=== PATIENT | male | born 1960 | race Hispanic/Latino ===

== ENCOUNTER 2017-03-27 06:39 | Day surgery (SDC) | payer MEDICAID ==
[2017-03-23 12:46] VITALS: BMI 23.0
[2017-03-27] MEDS ORDERED: Lidocaine 2% Inj (20ml) ONE (07:04)
[2017-03-27] MEDS ORDERED: HEPARIN SODIUM/NS 2,000 ML IV ONE (07:05)
[2017-03-27] MEDS ORDERED: Iohexol 350 MG/100 ML VIAL ONE (07:05)
[2017-03-27] MEDS ORDERED: Iohexol 350mgl/ml 50 ML ONE (07:05)
[2017-03-27] MEDS ORDERED: Nitroglycerin 50mg in D5W 50 MG/250 ML BOTTLE IV ONE (07:05)
[2017-03-27] MEDS ORDERED: Phenylephrine 10 mg/ml Inj ONE (07:06)
[2017-03-27 07:28] VITALS: O2SAT 99
[2017-03-27 07:39] LABS: BASO # 0.02 [, K/mm3] (0.0-2.0); BASO % 0.4 % (0.0-3.0); EOS # 0.2 (0.0-0.7); EOS % 4.3 % (1.5-5.0); GRAN # 2.8 (1.4-6.5); GRAN % 57.8 % (50.0-68.0); HEMOGLOBIN 11.4 g/dL (14.0-18.0); LYMPH # 1.4 (1.2-3.4); MEAN CORPUSCULAR HEMOGLOBIN 31.3 pg (25.0-35.0); MEAN CORPUSCULAR HGB CONC 33.3 g/dl (31.0-37.0); MEAN PLATELET VOLUME 9.1 fl (7.0-11.0); MONO # 0.5 (0.1-0.6); MONO % 9.5 % (1.0-6.0); RBC 3.64 [, 10^6/uL] (3.5-6.1); RED CELL DISTRIBUTION WIDTH 12.7 % (11.5-14.5); WHITE BLOOD COUNT 4.9 [, 10^3/ul] (4.5-11.0)
[2017-03-27 07:51] LABS: INR 0.91 (0.93-1.08); PARTIAL THROMBOPLASTIN TIME 31.2 Seconds (25.1-36.5); PROTHROMBIN TIME 10.5 SECONDS (9.4-12.5)
[2017-03-27 07:58] LABS: BLOOD UREA NITROGEN 14 mg/dL (7-21); GFR AFRICAN-AMERICAN > 60; GFR NON-AFRICAN AMERICAN > 60; HDL CHOLESTEROL 79 mg/dL (29-60)
[2017-03-27 08:09] LABS: LDL CHOLESTEROL 81 mg/dL (0-129)
--- NOTE | 2017-03-27 08:16 | HP ---
REASON FOR ADMISSION: Left heart cath, possible angioplasty. BRIEF CLINICAL HISTORY: This is a 57-year-old male with past medical history significant for arthritis; by profession, the patient is a christianson; complaining of dyspnea on exertion and chest pain on exertion, and get better by taking rest. The patient has a stress test, first insurance approved regular stress test which is abnormal, so cardiac catheterization was referred. The patient's insurance did not approve the cardiac catheterization, so the patient underwent a stress thallium dated 02/2017 that shows abnormal stress myocardial perfusion study reversible medium-sized anteroseptal-apical defect suggestive of ischemia, so the patient is scheduled for elective cardiac catheterization and possible angioplasty. The patient is complaining of dyspnea and chest pain on exertion and completely relieved by taking rest. PAST MEDICAL HISTORY: Significant for arthritis. SOCIAL HISTORY: Denies smoking. Denies any history of alcohol abuse. CURRENT MEDICATIONS: The patient is taking naproxen 500 mg daily, lisinopril 2.5 mg daily, aspirin 81 mg daily, metoprolol succinate 25 mg daily, multivitamin 1 tablet daily. ALLERGIES: NO KNOWN DRUG ALLERGIES. REVIEW OF SYSTEMS: As per HPI. PREVIOUS CARDIAC WORKUP: As follows; the patient had a stress test done at [facility] x2. First stress test was positive regular stress test, so cardiac catheterization was recommended but insurance disapproved it. Repeat stress test done dated 01/30/2017, the patient walked on the treadmill for 7 minutes and 28 seconds achieving estimated workload of 10 METs and heart rate into the 138% with 80% of predicted heart rate . A stress component shows abnormal stress myocardial perfusion study, reversible medium-sized anteroseptal-apical defect suggestive of ischemia, ejection fraction of 66%. PHYSICAL EXAMINATION: GENERAL: Height of the patient is 5 feet 11 inches, weight of the patient is 165 pounds, body mass index 23 kg/m2. VITAL SIGNS: As follows: Blood pressure 122/88, heart rate 68. HEENT: PERRLA. Extraocular muscles intact. NECK: Supple. No carotid bruits or thyromegaly. CHEST: Clear to auscultation. HEART: S1 and S2 regular. ABDOMEN: Soft. EXTREMITIES: Clubbing and cyanosis negative. LABORATORY DATA: Blood workup pending. IMPRESSION: Unstable angina, arthritis, hypertension borderline, abnormal stress test, anteroseptal-apical ischemia, ejection fraction of 66%. RECOMMENDATION: Risks, benefits and alternatives were discussed with the patient. The patient agreed, and we will proceed for the cardiac catheterization. We will load with aspirin and Plavix. Wait for the blood workup. If the blood workup is available, we will proceed with cardiac catheterization. Further recommendation after the cardiac catheterization. We will follow with you. Thank you Dr. Cindi Prasad for providing us the opportunity in taking care of the patient, Dickson Flores. Chikis Hammer MD
[2017-03-27] MEDS ORDERED: Midazolam 2 MG/2 ML VIAL ONE (08:56)
[2017-03-27] MEDS ORDERED: Eptifibatide 20 mg/10mL Inj IVP ONE (09:30)
[2017-03-27] MEDS ORDERED: Sodium Chloride 0.9% 1,000 ML IV SCH (10:30)
[2017-03-27 13:57] LABS: BASO # 0.01 [, K/mm3] (0.0-2.0); BASO % 0.2 % (0.0-3.0); EOS # 0.1 (0.0-0.7); EOS % 2.1 % (1.5-5.0); GRAN # 2.84 (1.4-6.5); GRAN % 53.7 % (50.0-68.0); HEMOGLOBIN 12.2 g/dL (14.0-18.0); LYMPH # 1.8 (1.2-3.4); LYMPH % 34.4 % (22.0-35.0); MEAN CELL VOLUME 94.8 fl (80.0-105.0); MEAN CORPUSCULAR HEMOGLOBIN 31.9 pg (25.0-35.0); MEAN CORPUSCULAR HGB CONC 33.6 g/dl (31.0-37.0); MEAN PLATELET VOLUME 9.2 fl (7.0-11.0); MONO # 0.5 (0.1-0.6); MONO % 9.6 % (1.0-6.0); RBC 3.83 [, 10^6/uL] (3.5-6.1); RED CELL DISTRIBUTION WIDTH 12.9 % (11.5-14.5); WHITE BLOOD COUNT 5.3 [, 10^3/ul] (4.5-11.0)
[2017-03-27 14:05] LABS: BLOOD UREA NITROGEN 12 mg/dL (7-21); CALCIUM 9.9 mg/dL (8.4-10.5); GFR AFRICAN-AMERICAN > 60; GFR NON-AFRICAN AMERICAN > 60
[2017-03-27 14:22] VITALS: TEMP 98.1
[2017-03-27] MEDS ORDERED: Bacitracin 500 Units/gm Oint Foilpak UD ONE (16:17)
--- NOTE | 2017-03-27 16:24 | CARD ---
APPROVED REPORT EKG Measurement Heart [id number] <Conclusion> Marked sinus bradycardia Abnormal ECG
--- NOTE | 2017-03-27 16:44 | CARD ---
APPROVED REPORT EKG Measurement Heart [id number] <Conclusion> Sinus bradycardia Incomplete right bundle branch block Moderate voltage criteria for LVH, may be normal variant Borderline ECG
[2017-03-27 17:42] VITALS: BP 134/78; PULSE 54; RESP 20
--- NOTE | 2017-03-27 18:36 | CARD ---
APPROVED REPORT Procedure(s) performed: Left Heart Catheterization PTCA with Stenting of proximal LAd with LANA HISTORY The patient is a 57 year-old male with a history of : most recent EF: 66%. (EF Method: RADIONUCLIDE), hypertension . INDICATION The indication(s) include : positive stress test, unstable angina , chest pain, dyspnea. CASE TECHNIQUE The patient was brought electively to the Cardiac Catheterization Laboratory in a fasting state and was prepped and draped in a sterile manner. The left wrist was infiltrated with 2% Lidocaine subcutaneous anesthesia. A 6FR [employer] sheath was inserted into the left radial artery without difficulty. Coronary angiography was performed using coronary diagnostic catheters. The left coronary system was accessed and visualized with a Diagnostic ,5 Fr JL 4 catheter. The right coronary system was accessed and visualized with a Diagnostic , catheter. The left ventricle was accessed and visualized with a 5 Fr Pigtail 145 (Angled) catheter. Left ventricular/Aortic Valve gradient assessed on pullback. Left ventriculogram was performed in JONES projection. Closure device was deployed with a Fr TR Band (Regular) without any complications. The patient tolerated the procedure well and there were no complications associated with the procedure. Vessel Analysis The patient's coronary anatomy is right dominant. The left main coronary artery is a large size vessel Very short or separate ostium for LAD/CX. The left main trifurcates to the left anterior descending, circumflex, and ramus. The left anterior descending artery is a medium size vessel with diffuse calcification noted throughout this vessel and with significant stenosis. There is a 90% stenosis in the proximal segment. The first diagonal branch is a medium size vessel with diffuse calcification noted throughout this vessel and without significant stenosis. The second diagonal branch is a medium size vessel with diffuse calcification noted throughout this vessel and without significant stenosis. The circumflex artery is a medium size vessel with diffuse calcification noted throughout this vessel and without significant stenosis. The first obtuse marginal branch is a medium size vessel with diffuse calcification noted throughout this vessel and without significant stenosis. The ramus intermedius artery is a medium size vessel with diffuse calcification noted throughout this vessel and without significant stenosis. The right coronary artery is a large size vessel with diffuse calcification noted throughout this vessel and without significant stenosis. The right posterior descending artery is a large size vessel with diffuse calcification noted throughout this vessel and without significant stenosis. The right posterolateral branch is a large size vessel with diffuse calcification noted throughout this vessel and without significant stenosis. Left Ventricle The left ventricle is normal in size with normal contractility. There was no cardiomyopathy. The left ventricular ejection fraction is estimated to be 55-60%. The left ventricular end diastolic pressure is 14 mmHg. There was no gradient across the aortic valve upon pullback. PCI Technique Lesion Anticoagulation was achieved with Heparin. Percutaneous coronary intervention was performed on the proximal left anterior descending artery segment. The lesion stenosis prior to intervention was 90% with FERNY 1 flow. A 6 Fr XB 3.5 SH Guide Catheter was used to engage the ostium. A Amulyte 182 Interventional Guidewire was used to cross the lesion. BALLOON DILATION A Balloon catheter 2.0 x 12 mm Mini Trek RX was inserted and inflated up to 8.00atm for 10seconds. STENT DEPLOYMENT A drug-eluting stent 4.0 x 12 mm Resolute LANA was inserted and inflated up to 12atm for 15seconds. POST STENT DEPLOYMENT BALLOON DILATION A Balloon catheter 4.5 x 8 mm Trek RX NC was inserted and inflated up to 18.00atm for 19seconds. Final angiography reveals 0 % stenosis with FERNY 3 flow. 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 EF-55-60%. successful PTCA with LANA Recommendations Cardiac Rehabilitation ReferralDaily ASA with Plavix for at least one year Aggressive Medical TherapyCardiac Risk Reduction Program CC; Dr.Rita Osmar MD
[2017-03-28] MEDS ORDERED: Metoprolol Succinate 25 mg XL Tab PO SCH (10:00)
== END 2017-03-27 19:38 | disposition home or self-care (01) ==
LOC: CATH 06:39 → 2RSO 10:24 → CATH 19:38
PROVIDERS: ATTEND Internal Medicine Cardiovascular Disease
DX: I25.110 Atherosclerotic heart disease of native coronary artery with unstable angina pectoris (principal); I10 Essential (primary) hypertension; M19.90 Unspecified osteoarthritis, unspecified site
CPT/HCPCS: 36415; 80048; 80061; 85025; 85175; 85610; 85730; 86850; 86900; 93005; 93458; 99152; 99153; C1725 ×2; C1769 ×2; C1874; C1887 ×3; C9600; J1327; J1644 ×2; J2250; J2370; J3010; J7030; J7040; Q9967 ×3